=== PATIENT | male | born 1960 | race Caucasian/White ===

== ENCOUNTER 2016-07-05 01:43 | Inpatient (IN) | payer OTHER ==
[~2016-07-05] VITALS: Ht 180.3 cm; Wt 63.2 kg
[2016-07-05] VITALS (36 sets, daily range): BP systolic 91–144; BP diastolic 51–92; PULSE 57–88; RESP 16–22; TEMP 97.4–98.5; O2SAT 92–99
[~2016-07-05 01:43] MED LIST: Z.0.NO CURRENT MEDS
[2016-07-05] MEDS: NITROGLYCERIN 0.4 MG SL 25 TABS/BTL SL SCH ×3 (01:54→02:19)
[2016-07-05] MEDS ORDERED: ASPIRIN 81 MG CHEW TAB PO ONE (02:00)
[2016-07-05] MEDS ORDERED: SODIUM CHLORID 0.9% 500 ML INJ 500 ML IV ONE (02:00)
[2016-07-05] MEDS ORDERED: SODIUM CHLORIDE 0.9% FLUSH 10 ML FLUSH IVF PRN ×3 (02:00→05:45)
[2016-07-05] MEDS ORDERED: SODIUM CHLOR 0.9% 1000 ML INJ 1,000 ML IV SCH (02:00)
[2016-07-05] MEDS ORDERED: ALPR0.25 PO (02:07)
[2016-07-05] MEDS ORDERED: PANT20TA2 PO (02:07)
[2016-07-05] MEDS ORDERED: BUPR100CR PO (02:07)
[2016-07-05] MEDS ORDERED: ATOR20TA15 PO (02:07)
[2016-07-05 02:25] LABS: AUTOMATED NEUTROPHIL # 5.5 TH/MM3 (1.8-7.7); BASOPHIL # 0.2 TH/MM3 (0-0.2); BASOPHIL % 1.7 % (0.0-2.0); EOSINOPHIL # 0.5 TH/MM3 (0-0.4); LYMPH % 42.8 % (9.0-44.0); LYMPHOCYTE # 5.1 TH/MM3 (1.0-4.8); MEAN CELL VOLUME 91.7 FL (80.0-100.0); MEAN CORPUSCULAR HEMOGLOBIN 30.2 PG (27.0-34.0); NEUT % 45.5 % (16.0-70.0); PLATELET COUNT 331 TH/MM3 (150-450); RED BLOOD COUNT 4.91 MIL/MM3 (4.50-5.90); RED CELL DISTRIBUTION WIDTH 12.6 % (11.6-17.2)
[2016-07-05 02:26] LABS: HEMO FLAGS DIFF FINAL
[2016-07-05 02:33] LABS: CHLORIDE 105 MEQ/L (98-107); SODIUM (NA) 143 MEQ/L (136-145)
[2016-07-05 02:37] LABS: ANION GAP 9 MEQ/L (5-15); APTT (PATIENT) 22.9 SEC (24.3-30.1); BICARBONATE 29.5 MEQ/L (21.0-32.0); INTERNATIONAL NORMALIZED RATIO 0.9 RATIO; MAGNESIUM 2.2 MG/DL (1.5-2.5)
[2016-07-05 02:38] LABS: BLOOD UREA NITROGEN 20 MG/DL (7-18)
[2016-07-05 02:40] LABS: ALT (GPT) 60 U/L (12-78); AST (GOT) 39 U/L (15-37); GLOMERULAR FILTRATION RATE 101 ML/MIN (>89)
[2016-07-05 02:42] LABS: TOTAL BILIRUBIN ADULT 0.4 MG/DL (0.2-1.0)
[2016-07-05 02:43] LABS: ALKALINE PHOSPHATASE 90 U/L (45-117); CREATINE KINASE 145 U/L (39-308)
[2016-07-05] MEDS ORDERED: POTASSIUM CHLORIDE 20 MEQ CONTROLLED RELEASE TAB PO ONE (02:45)
[2016-07-05] MEDS ORDERED: NITROGLYCERIN-DEXTROSE INJ 250 ML IV ONE ×2 (02:45→06:15)
[2016-07-05] MEDS ORDERED: NITROGLYCERIN-DEXTROSE INJ 250 ML IV SCH (02:45)
[2016-07-05] MEDS ORDERED: ONDANSETRON HCL 4 MG/2 ML VIAL IV PUSH ONE ×2 (02:45→03:15)
[2016-07-05] MEDS ORDERED: MORPHINE SULFATE 4 MG/ML INJ IV PUSH ONE (02:45)
--- NOTE | 2016-07-05 02:47 | RADHPO ---
EXAM DATE/TIME: 07/05/2016 02:31 [facility] COMPARISON: No previous studies available for comparison. INDICATIONS : Chest pain. MEDICAL HISTORY : None. SURGICAL HISTORY : None. ENCOUNTER: Initial ACUITY: 1 day PAIN SCORE: 8/10 LOCATION: Bilateral chest FINDINGS: The heart size is normal. The lungs are free of focal consolidation. There are small calcified granul omas seen in the right lung. There is mild elevation of the left hemidiaphragm. No effusion is seen. CONCLUSION: No acute abnormality is seen. August Saravia MD on July 05, 2016 at 2:45 Board Certified Radiologist. This report was verified electronically.
[2016-07-05 02:55] LABS: CKMB 3.2 NG/ML (0.5-3.6)
[2016-07-05] MEDS ORDERED: SODIUM CHLOR 0.9% 1000 ML INJ 1,000 ML IV ONE (03:15)
[2016-07-05] MEDS ORDERED: HYDROmorphone HCL PF 1 MG/ML VIAL IV PUSH ONE ×2 (03:15→04:30)
--- NOTE | 2016-07-05 03:18 | PD ---
HPI Chief Complaint: Chest Pain Time Seen by Provider: 01:50 Travel History International Travel<30 days: No Contact w/Intl Traveler<30days: No Traveled to known affect area: No History of Present Illness HPI 56-year-old male presents to the emergency department by private transportation for 45 minutes of chest pain. Chest pain is nonradiating. Patient did note some mild sweats and nausea. Patient denies abdominal pain. No prior history of chest pain. Patient is treated for high cholesterol. Patient quit smoking 2 months ago after several years a heavy tobacco use. No prior history of cardiac disease. Patient denies any family history of cardiac disease. Patient denies referred neck jaw back shoulder arm or abdominal pain. Patient states symptoms began after eating rice and beans and eating ice cream. No prior history of gallbladder disease or pancreatitis also denies peptic ulcer disease. Patient has had no hematemesis no coffee-ground emesis. Patient states he has noted a lot of belching. Patient had similar symptoms after eating fatty foods several weeks ago. Patient rates pain 7/10 in intensity. Patient is unable to identify exacerbating or alleviating factors. Patient did take aspirin prior to arrival to the emergency room. PFSH Past Medical History Narrative Medical Anxiety depression dyslipidemia GERD alcohol use; nursing notes reviewed Anxiety: Yes Depression: Yes High Cholesterol: Yes GERD: Yes Tetanus Vaccination: > 5 Years Influenza Vaccination: No Social History Alcohol Use: Yes (occ) Tobacco Use: No (quit 2 mo ago) Allergies-Medications (Allergen,Severity, Reaction): Coded Allergies: No Known Allergies (Unverified , 07/05/16) Reported Meds & Prescriptions Reported Meds & Active Scripts Active Reported Atorvastatin (Atorvastatin Calcium) 20 Mg Tab 20 Mg PO HS Pantoprazole (Pantoprazole Sodium) 20 Mg Tab 20 Mg PO DAILY Wellbutrin SR 12 HR (Bupropion HCl) 100 Mg Tab 100 Mg PO Q12HR Alprazolam 0.25 Mg Tab 0.25 Mg PO BID PRN No Current Meds (Miscellaneous Medication) Misc Review of Systems Except as stated in HPI: all other systems reviewed are Neg General / Constitutional: No: Fever, Chills HENT: No: Congestion Cardiovascular: Positive: Chest Pain or Discomfort, Diaphoresis, No: Palpitations, Irregular Rhythm, Tachycardia Respiratory: No: Cough, Shortness of Breath, Wheezing, Sneezing Gastrointestinal: Positive: Nausea, No: Vomiting, Diarrhea, Abdominal Pain Genitourinary: No: Dysuria, Flank Pain Musculoskeletal: No: Myalgias, Arthralgias Skin: No Rash Neurologic: No: Weakness Psychiatric: No: Anxiety Endocrine: No: Heat Intolerance Hematologic/Lymphatic: No: Easy Bruising Physical Exam Narrative GENERAL: Well-developed well-nourished male appears in discomfort no respiratory distress SKIN: Warm and dry. HEAD: Normocephalic. EYES: No scleral icterus. No injection or drainage. NECK: Supple, trachea midline. No JVD or lymphadenopathy. CARDIOVASCULAR: Regular rate and rhythm without murmurs, gallops, or rubs. RESPIRATORY: Breath sounds equal bilaterally. No accessory muscle use. GASTROINTESTINAL: Abdomen soft, non-tender, nondistended. MUSCULOSKELETAL: No cyanosis, or edema. Radial and dorsalis pedis pulses 2+ to palpation bilateral BACK: Nontender without obvious deformity. No CVA tenderness. Data Data Last Documented VS Vital Signs Date Time Temp Pulse Resp B/P Pulse Ox O2 Delivery O2 Flow Rate FiO2 07/05/16 05:20 70 18 115/83 99 Room Air 07/05/16 04:52 2 07/05/16 02:14 97.6 Orders Electrocardiogram (07/05/16 01:50) Ckmb (Isoenzyme) Profile (07/05/16 01:50) Complete Blood Count With Diff (07/05/16 01:50) Comprehensive Metabolic Panel (07/05/16 01:50) Magnesium (Mg) (07/05/16 01:50) Prothrombin Time / Inr (Pt) (07/05/16 01:50) Act Partial Throm Time (Ptt) (07/05/16 01:50) Troponin I (07/05/16 01:50) Lipase (07/05/16 01:50) Chest, Single Ap (07/05/16 01:50) Ecg Monitoring (07/05/16 01:50) Bilateral Bp Monitoring (07/05/16 01:50) Iv Access Insert/Monitor (07/05/16 01:50) Oximetry (07/05/16 01:50) Oxygen Administration (07/05/16 01:50) Aspirin Chew (Aspirin Chew) (07/05/16 02:00) Sodium Chloride 0.9% Flush (Ns Flush) (07/05/16 02:00) Nitroglycerin Sl (Nitrostat Sl) (07/05/16 02:00) Sodium Chlorid 0.9% 500 Ml Inj (Ns 500 M (07/05/16 02:00) Sodium Chlor 0.9% 1000 Ml Inj (Ns 1000 M (07/05/16 02:00) Ondansetron Inj (Zofran Inj) (07/05/16 02:45) Morphine Inj (Morphine Inj) (07/05/16 02:45) Nitroglycerin-Dextrose Inj (Nitroglyceri (07/05/16 02:45) Electrocardiogram (07/05/16 ) Potassium Chloride (Kcl) (07/05/16 02:45) CKMB (07/05/16 02:10) CKMB% (07/05/16 02:10) Sodium Chlor 0.9% 1000 Ml Inj (Ns 1000 M (07/05/16 03:15) Ondansetron Inj (Zofran Inj) (07/05/16 03:15) Hydromorphone Pf Inj (Dilaudid Pf Inj) (07/05/16 03:15) Sodium Chloride 0.9% Flush (Ns Flush) (07/05/16 03:15) Cta Thor Abd Aorta W Iv C W3d (07/05/16 03:08) Pantoprazole Inj (Protonix Inj) (07/05/16 03:45) Metoclopramide Inj (Reglan Inj) (07/05/16 04:30) Potassium Chlor 10 Meq Premix (Kcl 10 Me (07/05/16 04:30) Hydromorphone Pf Inj (Dilaudid Pf Inj) (07/05/16 04:30) Iohexol 350 Inj (Omnipaque 350 Inj) (07/05/16 04:30) Troponin I (07/05/16 05:09) Ckmb (Isoenzyme) Profile (07/05/16 05:09) Electrocardiogram (07/05/16 ) Heparin Infusion IWONA.Q1H (07/05/16 05:26) Heparin Inj (Heparin Inj) (07/05/16 05:30) Heparin Inj (Heparin Inj) (07/05/16 11:30) Heparin Inj (Heparin Inj) (07/05/16 11:30) Heparin-D5w Inj (Heparin-D5w Inj) (07/05/16 05:30) Act Partial Throm Time (Ptt) (07/05/16 05:26) Prothrombin Time / Inr (Pt) (07/05/16 05:26) Cbc No Diff, Includes Plts (07/05/16 05:26) Cbc No Diff, Includes Plts (07/08/16 06:00) Act Partial Throm Time (Ptt) (07/05/16 12:26) Occult Blood (Hemoccult) Stool (07/05/16 05:26) Admit Order (Ed Use Only) (07/05/16 ) ^ Saline Lock (07/05/16 05:40) Resp Oxygen Clayton C Titrat 1-4 L (07/05/16 ) Notify Dr: Other (07/05/16 05:40) Sodium Chloride 0.9% Flush (Ns Flush) (07/05/16 09:00) Sodium Chloride 0.9% Flush (Ns Flush) (07/05/16 05:45) CKMB (07/05/16 05:15) CKMB% (07/05/16 05:15) Labs Laboratory Tests Test 07/05/16 07/05/16 07/05/16 02:10 05:15 05:35 White Blood Count 12.0 TH/MM3 18.3 TH/MM3 Red Blood Count 4.91 MIL/MM3 4.12 MIL/MM3 Hemoglobin 14.8 GM/DL 13.3 GM/DL Hematocrit 45.0 % 38.0 % Mean Corpuscular Volume 91.7 FL 92.4 FL Mean Corpuscular Hemoglobin 30.2 PG 32.3 PG Mean Corpuscular Hemoglobin 33.0 % 35.0 % Concent Red Cell Distribution Width 12.6 % 12.3 % Platelet Count 331 TH/MM3 258 TH/MM3 Mean Platelet Volume 7.8 FL 7.3 FL Neutrophils (%) (Auto) 45.5 % Lymphocytes (%) (Auto) 42.8 % Monocytes (%) (Auto) 6.0 % Eosinophils (%) (Auto) 4.0 % Basophils (%) (Auto) 1.7 % Neutrophils # (Auto) 5.5 TH/MM3 Lymphocytes # (Auto) 5.1 TH/MM3 Monocytes # (Auto) 0.7 TH/MM3 Eosinophils # (Auto) 0.5 TH/MM3 Basophils # (Auto) 0.2 TH/MM3 CBC Comment DIFF FINAL Differential Comment Prothrombin Time 10.0 SEC 10.4 SEC Prothromb Time International 0.9 RATIO 0.9 RATIO Ratio Activated Partial 22.9 SEC 24.3 SEC Thromboplast Time Sodium Level 143 MEQ/L Potassium Level 3.0 MEQ/L Chloride Level 105 MEQ/L Carbon Dioxide Level 29.5 MEQ/L Anion Gap 9 MEQ/L Blood Urea Nitrogen 20 MG/DL Creatinine 0.79 MG/DL Estimat Glomerular Filtration 101 ML/MIN Rate Random Glucose 118 MG/DL Calcium Level 8.8 MG/DL Magnesium Level 2.2 MG/DL Total Bilirubin 0.4 MG/DL Aspartate Amino Transf 39 U/L (AST/SGOT) Alanine Aminotransferase 60 U/L (ALT/SGPT) Alkaline Phosphatase 90 U/L Total Creatine Kinase 145 U/L 124 U/L Creatine Kinase MB 3.2 NG/ML 5.0 NG/ML Troponin I 0.02 NG/ML 0.22 NG/ML Total Protein 7.6 GM/DL Albumin 3.8 GM/DL Lipase 132 U/L MDM Medical Decision Making Medical Screen Exam Complete: Yes Emergency Medical Condition: Yes Medical Record Reviewed: Yes Interpretation(s) EKG: normal sinus rhythm rate [address] elevation or ischemic changes inferiorly QS septally in V1 V2 age-indeterminate repeat EKG: Normal sinus rhythm rate [address] elevation or injury pattern persistent QS in V1 V2 decreased ischemic changes inferiorly CBC & BMP Diagram 07/05/16 02:10 Last Impressions Chest X-Ray 07/05/16 0150 Signed Impressions: Service Date/Time: Tuesday, July 05, 2016 02:31 - CONCLUSION: No acute abnormality is seen. August Saravia MD EKG #3 normal sinus rhythm rate 63 with ischemic changes noted inferiorly QS noted in septally in V1 V2 Differential Diagnosis Chest pain, ACS, myocardial infarction, pancreatitis, cholecystitis, aortic dissection, esophageal spasm Narrative Course Patient placed on cardiac nurse specialist IV access obtained EKG performed. No acute ST elevation in the: Patient administered aspirin 162 mg by mouth along with sublingual nitroglycerin normal saline bolus 500 cc and maintenance fluid at 100 cc per hour normal saline Patient notes after one sublingual nitroglycerin pain has decreased from 7/10-5/ 10 intensity but noted recurrence of pain to 7/10 in intensity additional intervention was administered and repeat EKG performed which reveals no acute changes compared to previous EKG Patient reports increased pain was identified to have low potassium administered Zofran 4 mg morphine sulfate 4 mg IV 40 mEq of potassium by mouth and nitroglycerin infusion and ordered cardiac enzymes pending Cardiac enzymes resulted CK total 30, elevated troponin I 0.02 not elevated Patient complains of increased pain administered Dilaudid 0.5 mg and CTA chest and abdomen ordered At 4:20 AM patient has returned from CT noted increased vomiting after IV contrast actively vomiting at this time Reglan 10 mg IV ordered patient also complains of recurrent chest pain stating that morphine provided no relief rates pain again 7/10 in intensity no associated sweats shortness of breath or referred neck jaw back shoulder arm pain; Dilaudid 0.5 mg repeated patient is receiving infusion of nitroglycerin at 10 mics per minute. CTa results pendnig trop #2 elevated 0.22. CK mb 4% elevated Critical Care Narrative Aggregate critical care time was 40 minutes. Time to perform other separately billable procedures was not included in the critical care time. My time did not include minutes spent treating any other patients simultaneously or on activities that did not directly contribute to the patient's treatment. The services I provided to this patient were to treat and/or prevent clinically significant deterioration that could result in: Cardiogenic shock, arrhythmia, I provided critical care services requiring my management, as noted below: Chart data review, documentation time, medication orders and management, vital sign assessments/reviewing monitor data, ordering and reviewing lab tests, ordering and interpreting/reviewing x-rays and diagnostic studies, care of the patient and discussion of the patient with the admitting physicians. 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
[2016-07-05] MEDS ORDERED: PANTOPRAZOLE SODIUM 40 MG VIAL IV PUSH ONE (03:45)
[2016-07-05] MEDS ORDERED: METOCLOPRAMIDE HCL 10 MG/2 ML VIAL IV PUSH ONE (04:30)
[2016-07-05] MEDS ORDERED: IOHEXOL 350 MG/ML 10 ML VIAL (for RAD DIAG) IV ONE (04:30)
[2016-07-05] MEDS: POTASSIUM CHLOR 10 MEQ PREMIX 100 ML IV SCH ×3 (04:45→06:48)
--- NOTE | 2016-07-05 04:59 | RADHPO ---
EXAM DATE/TIME: 07/05/2016 04:02 [facility] COMPARISON: No previous studies available for comparison. INDICATIONS : Chest pain. IV CONTRAST: 100 cc Omnipaque 350 (iohexol) IV RADIATION DOSE: 22.51 CTDIvol (mGy) MEDICAL HISTORY : Gastroesophageal reflux disease. SURGICAL HISTORY : None. ENCOUNTER: Initial ACUITY: 1 day PAIN SCALE: 7/10 LOCATION: chest TECHNIQUE: Volumetric scanning was performed using a multi-row detector CT scanner. The data was post processed with a variety of visualization algorithms including full volume maximum intensity projection, multi -planar sliding thin slab reformation, curved planar reformation, and surface rendering techniques. Using automated exposure control and adjustment of the mA and/or kV according to patient size, radiat ion dose was kept as low as reasonably achievable to obtain optimal diagnostic quality images. FINDINGS: LUNGS: There is no consolidation or pneumothorax. No concerning pulmonary nodule is visualized. There is m ild dependent atelectasis seen at the posterior lung bases. No pleural fluid is present. MEDIASTINUM: No abnormally enlarged lymph nodes by CT criteria. No axillary or hilar abnormalities are identified. Coronary artery calcifications are present. ABDOMEN: There are several peripherally enhancing mass is seen in the liver the largest mass measuring 1.7 cm. The spleen is free of focal defects. The gallbladder and pancreas demonstrate no abnormality. The ad renal glands are normal. The kidneys demonstrate no evidence of solid renal mass or hydronephrosis. T here is a 1.8 cm left renal cyst seen. No free fluid or abdominal masses are identified. No para-aort ic adenopathy is seen. PELVIS: No evidence of free fluid or pelvic mass. No abnormally enlarged inguinal or retroperitoneal lymph no angel are present. The bladder is unremarkable. THORACIC AORTA: The thoracic aortic root is normal with normal branching of the great vessels. There is no evidence of aneurysm or dissection. There is scattered atherosclerotic plaque seen. ABDOMINAL AORTA: The aorta is normal in caliber without aneurysm or dissection. The renal arteries are patent bilater ally. The proximal celiac and superior mesenteric arteries are patent and normal in diameter. PELVIC VESSELS: The internal iliac and external iliac vessels are patent without aneurysm or stenosis. CONCLUSION: 1. Minimal scattered atherosclerotic plaque is seen throughout the arterial system. 2. Multiple peripherally enhancing masses in the liver likely representing hemangiomas. August Saravia MD on July 05, 2016 at 4:52 Board Certified Radiologist. This report was verified electronically.
[2016-07-05] MEDS ORDERED: HEPARIN-D5W INJ 250 ML IV SCH (05:30)
[2016-07-05] MEDS ORDERED: HEPARIN SODIUM - IV 10,000 UNITS/10 ML VIAL IV ONE (05:30)
[2016-07-05 05:58] LABS: CREATINE KINASE 124 U/L (39-308)
[2016-07-05] MEDS ORDERED: METOPROLOL TARTRATE 5 MG/5 ML VIAL IV PUSH ONE (06:00)
[2016-07-05 06:02] LABS: MEAN CELL VOLUME 92.4 FL (80.0-100.0); MEAN CORPUSCULAR HEMOGLOBIN 32.3 PG (27.0-34.0); PLATELET COUNT 258 TH/MM3 (150-450); RED BLOOD COUNT 4.12 MIL/MM3 (4.50-5.90); RED CELL DISTRIBUTION WIDTH 12.3 % (11.6-17.2); REVIEW FLAG FINAL; WHITE BLOOD COUNT 18.3 TH/MM3 (4.0-11.0)
[2016-07-05 06:05] LABS: APTT (PATIENT) 24.3 SEC (24.3-30.1); INTERNATIONAL NORMALIZED RATIO 0.9 RATIO; PROTHROMBIN TIME - PATIENT 10.4 SEC (9.8-11.6)
[2016-07-05] MEDS ORDERED: ALPRAZolam 0.25 MG TAB PO PRN (06:30)
--- NOTE | 2016-07-05 08:19 | MH ---
cc: CARMELLA SCOTT M.D. DATE OF ADMISSION: 07/05/2016 ADMITTING DIAGNOSIS: Acute non-ST elevation myocardial infarction Hyperlipidemia. Gastroesophageal reflux disease Anxiety. Depression. PERTINENT HISTORY This is a 56-year-old white male who presented to [facility] in [place]. In the nail sticker hours he presented to [facility] in [place]. In the nail sticker hours he started having some substernal lower chest pain around 10:45, 11:00 p.m. according to him he had some slight nausea and sweats. The chest pain did not radiate to his neck or jaw. He had some chronic left shoulder pain but he states the pain, he had no pain was similar to that from his chest pain. When he came to the emergency department he was still in pain and he did have some vomiting, has been given some medication for his pain. He has been given some mediations for his pain. He has been put on a heparin drip, he was given some metoprolol IV push. He was given some pantoprazole IV. His initial EKG showed some slight ST depression in the inferiorly leads. He has been put on IV nitroglycerin. His troponin that was done initially was 0.02. The subsequent one has come back is 0.2. That was just done at 5 and a CK-MB percent was noted to be at 4%. With a total CK of 124. He has had no prior history of heart disease. He is under treatment for hyperlipidemia and he takes pantoprazole for occasional heartburn. The ER physician talked with the mud boss supply and distribution manager who recommended he be transferred up to [place]. I was subsequently called the cons covering the hospitalist up at [place] until 7:00 this morning I came over to the emergency room within 30 minutes after being called and saw him in the [place] ER and that the patient is in the process of being transferred to Dr. Jeffery Cifuentes the ER physician and subsequently talked again with the mud boss who has recommended he is transferred up there urgently and go to the catheterization lab with arrangements being made for that. The ambulance is in route now as I am dictating this in the emergency department. PAST MEDICAL HISTORY He takes medicine for hyperlipidemia occasionally uses pantoprazole for gastroesophageal reflux disease. He has history of anxiety and depression. He takes bupropion for depression. He only takes Alprazolam maybe three days per week. He denies any hypertension, diabetes, no history of heart disease. No stroke or seizure no lung disease, liver or kidney disease. PAST SURGICAL HISTORY Has had a right inguinal hernia repair, tonsillectomy had a cervical fusion in the past. Surgery for fracture of his distal right radius with a plate put in. ALLERGIES None. MEDICATIONS 1. He is on atorvastatin 20 mg a day. 2. Pantoprazole 20 mg he does not take it daily just as needed for heartburn. 3. Bupropion sustained release 100 mg one twice a day. Admits that lots of times he just takes it once per day. 4. Alprazolam 0.25 mg only uses it maybe 3 days a week. FAMILY HISTORY: Family history is mother 96 of old age. Father at 86. He does not know the cause. He did have history of coronary bypass grafting. SOCIAL HISTORY He quit smoking two months ago. He has smoked 3/4 pack to one pack per day it started at age 19. He has occasional glass of wine or beer not daily. 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 He is single but has been with the same female partner for several years. He has never . REVIEW OF SYSTEMS GENERAL: No fever, chills and he did have some mild sweats when he was nausea and earlier. HEAD, EYES, EARS, NOSE, AND THROAT: Without complaints. CARDIOVASCULAR SYSTEM: As noted. He States his pain is still slightly present but not as intense as an was when he first came into the emergency department. PULMONARY: No cough, hemoptysis, wheezing. GASTROINTESTINAL: No diarrhea, constipation, melena, rectal bleeding. No abdominal pain. He did vomit in the ED but does not complain of any nausea now. GENITOURINARY: Without complaints. EXTREMITIES: With no swelling or pain. SKIN: The skin without rash. NEUROLOGIC: No focal signs. PHYSICAL EXAMINATION: IN GENERAL: He is on her pleasant white male who is not any distress. VITAL SIGNS: His current Vital signs: BP is 119/91, pulse 85, respirations 18, O2 sat 98% on room air. HEAD, EYES, EARS, NOSE, AND THROAT: TMs clear. Pupils nose. Pupils equal. No scleral icterus. Nose negative. Mouth without inflammation or lesion. NECK: Without bruit. No JVD. HEART: Regular rate and rhythm. No murmur. LUNGS: The lungs appear clear. ABDOMEN: The abdomen is soft, nontender and no masses. No chest wall tenderness. EXTREMITIES: No edema. Pulses are palpated in the feet. SKIN: Negative. LYMPHATICS: Negative. NEUOROLOGIC: Oriented x3. Cranial nerves, motor sensory intact. LABORATORY His potassium was 3.0. Sodium 143, chloride 1-0 CO2 29.5, BUN 20, creatinine 0.79. His glucose was 118, AST was 39, ALT 60, alkaline phosphatase normal. His initial CK was 145 repeat 124 but the MB percent went up from 3.2 to 4%. Troponin was 0.02 and then increased to 0.22 total protein 7.6. Albumin 3.8, lipase 132. White count initially was 12.0. Hemoglobin 14.8 A CTA of the chest showed some minimal scattered atherosclerotic plaque seen throughout the arterial system. There were multiple peripheral enhancing masses in the liver likely representing and Angiomas. A Chest x-ray Showed no acute process. EKG as mentioned. ASSESSMENT As noted. PLAN Arrangements being made currently for the patient be transferred directly to [facility] with preparations being made by the mud boss for him to go to the dental laboratory technology teacher as mentioned. He is on IV nitroglycerin and he has been on heparin. He has received metoprolol, he has already had aspirin. He has received pantoprazole. He is on the narcotics IV for pain. He will be managed by one of the hospitalist in [facility] later today. MD MARLEY Montilla/sophia /6:34 AM /8:05 AM
[2016-07-05] MEDS: SODIUM CHLORIDE 0.9% FLUSH 10 ML FLUSH IV FLUSH SCH ×2 (08:22→21:00)
[2016-07-05] MEDS: PANTOPRAZOLE SOD 20 MG DELAYED RELEASE TAB PO SCH (08:28)
[2016-07-05] MEDS: buPROPion HCL 100 MG SUSTAINED RELEASE TAB PO SCH ×2 (08:28→21:00)
--- NOTE | 2016-07-05 09:54 | HHI.PR ---
Subjective Remarks resting comfortably no cp or sob Objective Vitals heart reg lung cta abd s/nt ext no edema Vital Signs Date Time Temp Pulse Resp B/P Pulse Ox O2 Delivery O2 Flow Rate FiO2 07/05/16 09:23 71 07/05/16 08:45 58 07/05/16 08:45 97.4 57 18 106/76 97 07/05/16 06:30 78 18 112/85 97 Nasal Cannula 07/05/16 06:20 65 18 117/83 97 Nasal Cannula 07/05/16 06:09 98 Nasal Cannula 2.00 07/05/16 06:00 85 18 119/91 98 Nasal Cannula 2 07/05/16 05:20 70 18 115/83 99 Room Air 07/05/16 05:00 19 07/05/16 04:52 70 20 129/87 99 Nasal Cannula 2 07/05/16 04:28 72 20 118/83 97 Nasal Cannula 2 07/05/16 04:20 69 19 100/74 07/05/16 03:54 72 22 91/54 Nasal Cannula 07/05/16 03:51 18 07/05/16 03:39 Nasal Cannula 2 07/05/16 03:31 70 22 107/66 99 Nasal Cannula 07/05/16 03:26 67 22 108/78 99 Nasal Cannula 2 07/05/16 03:16 62 22 107/78 99 Nasal Cannula 2 07/05/16 02:51 20 07/05/16 02:48 71 20 101/73 98 Nasal Cannula 07/05/16 02:36 69 18 113/76 98 Nasal Cannula 2 07/05/16 02:21 Nasal Cannula 2 07/05/16 02:20 68 18 107/72 98 Nasal Cannula 2 07/05/16 02:14 97.6 64 19 105/71 94 Nasal Cannula 07/05/16 02:10 95 Nasal Cannula 2 07/05/16 02:10 94 Nasal Cannula 2 07/05/16 02:08 75 18 96/61 92 Room Air 94/51 07/05/16 01:59 19 07/05/16 01:54 144/92 07/04/16 07/04/16 07/05/16 15:00 23:00 07:00 Intake Total 1500 ml Output Total 900 ml Balance 600 ml Intake IV Total 1500 ml Output Urine Total 700 ml Emesis 200 ml Result Diagram: 07/05/16 0535 07/05/16 0210 A/P Problem List: (1) NSTEMI (non-ST elevated myocardial infarction) Status: Acute Plan: Pt presented with cp and elevated troponin concerning for nstemi on heparin ntg statin asa further meds to be determined. ivf seen by cardiology and [facility] planned soon. (2) Hypokalemia Status: Acute Plan: Moises Quiroz MD Jul 05, 2016 09:54
[2016-07-05] MEDS: NS + KCL 20 MEQ INJ 1,000 ML IV SCH ×2 (10:00→21:29)
[2016-07-05] MEDS ORDERED: HEPARIN SODIUM - IV 10,000 UNITS/10 ML VIAL IV PRN ×2 (11:30)
[2016-07-05] MEDS ORDERED: HEPARIN-NS/PF INJ 500 ML ONE (11:58)
[2016-07-05] MEDS ORDERED: IOHEXOL 350 MG/ML 100 ML BTL (for Cath Lab) OTHER ONE (12:23)
[2016-07-05] MEDS ORDERED: MIDAZOLAM HCL 2 MG/2 ML VIAL ONE (12:27)
[2016-07-05] MEDS ORDERED: HEPARIN SODIUM - IV 10,000 UNITS/10 ML VIAL ONE (13:21)
[2016-07-05] MEDS ORDERED: CLOPIDOGREL 300 MG TAB ONE (13:45)
[2016-07-05] MEDS ORDERED: ONDANSETRON HCL 4 MG/2 ML VIAL IV PRN (14:00)
[2016-07-05] MEDS ORDERED: ATROPINE SULFATE 1 MG/ML VIAL IV PRN (14:00)
[2016-07-05] MEDS ORDERED: MISC INFORMATION XX ONE (14:00)
[2016-07-05] MEDS ORDERED: CLOPIDOGREL 300 MG TAB PO ONE (14:30)
[2016-07-05] MEDS: ASPIRIN 81 MG CHEW TAB PO SCH (14:30)
[2016-07-05] MEDS ORDERED: POTASSIUM CHLORIDE 10 MEQ CONTROLLED RELEASE TAB PO ONE (14:30)
--- NOTE | 2016-07-05 14:30 | EKG ---
Date Performed: 07/05/2016 Time Performed: 01:44:26 PTAGE: 56 years EKG: Sinus rhythm . rSr'(V1) - probable normal variant Inferior/lateral ST-T changes are nonspecific Compared to prior tracing no significant change Borderline ECG NO PREVIOUS TRACING DOCTOR: Jose Monae Interpretating Date/Time 07/05/2016 14:30:07
--- NOTE | 2016-07-05 14:30 | EKG ---
Date Performed: 07/05/2016 Time Performed: 02:35:02 PTAGE: 56 years EKG: Sinus rhythm . rSr'(V1) - probable normal variant Inferior ST-T changes are nonspecific Compared to prior tracing no significant change Borderline ECG PREVIOUS TRACING : 07/05/2016 01.44 DOCTOR: Jose Monae Interpretating Date/Time 07/05/2016 14:30:16
--- NOTE | 2016-07-05 14:31 | EKG ---
Date Performed: 07/05/2016 Time Performed: 05:15:02 PTAGE: 56 years EKG: Sinus arrhythmia. rSr'(V1) - probable normal variant Extensive ST-T changes are nonspecific Compared to prior tracing no significant change Borderline ECG NO PREVIOUS TRACING DOCTOR: Jose Monae Interpretating Date/Time 07/05/2016 14:30:29
[2016-07-05 16:39] LABS: APTT (PATIENT) 44.1 SEC (24.3-30.1)
--- NOTE | 2016-07-05 18:21 | MB ---
cc: JERSON OAKLEY DATE OF CONSULTATION 07/05/16 1960 REASON FOR CONSULTATION Chest pain. HISTORY OF PRESENT ILLNESS 56-year-old male with past medical history of hyperlipidemia and gastroesophageal reflux disease that presented to the [facility] emergency department with complaint of chest discomfort associated with diaphoresis and nausea. He reports that the chest pain radiated to his neck and jaw. In the emergency department, EKG revealed sinus rhythm with nonspecific ST changes. The first set of cardiac markers was unremarkable. However, he continued with the pain despite starting him on nitro and heparin drip. CTA of the chest was negative for pulmonary emboli or dissection. Cardiology has been consulted for further management and evaluation. REVIEW OF SYSTEMS Negative except for what is mentioned in HPI. PAST MEDICAL HISTORY 1. Hyperlipidemia, 2. Gastroesophageal reflux disease, 3. Depression, anxiety 4. Previous smoker. PAST SURGICAL HISTORY 1. Writing inguinal hernia repairs 2. Tonsillectomy 3. Cervical fusion. ALLERGIES NO KNOWN DRUG ALLERGIES MEDICATIONS Home, 1. Lipitor 20 mg p.o. daily. 2. Protonix 20 mg p.o. daily 3. Bupropion 100 mg by mouth twice a day 4. Alprazolam 0.25 p.r.n. for anxiety. FAMILY HISTORY Unremarkable. SOCIAL HISTORY He quit smoking two months ago. He drinks alcohol socially. He denies any illicit drug use. PHYSICAL EXAMINATION VITAL SIGNS: Temperature 97.6, respiratory rate 18, pulse 63, blood pressure 100/69, O2 sat 94% in room air. GENERAL: Awake, alert, oriented x3 in no acute distress. NECK: No JVP, no carotid bruits. HEART: Regular rate and rhythm. No murmurs, rubs or gallops. LUNGS: Clear to auscultation bilaterally. No wheezes or rhonchi or rales. ABDOMEN: Soft, nontender, nondistended with positive bowel sounds. EXTREMITIES: No cyanosis or edema. Pulses throughout. LAB DATA CBC - Hemoglobin 13, hematocrit 38, white blood cell count trending up to 18, platelet count 258, INR 0.9. Sodium 143, potassium 3.0, BUN 20, creatinine 0.79, troponin 0.02 and 0.22. LABORATORY DATA CTA unremarkable for dissection. Chest x-ray - No acute cardiopulmonary process. CARDIOLOGY STUDIES EKG - sinus rhythm with nonspecific ST changes. ASSESSMENT/PLAN 56-year-old male with past medical history of hyperlipidemia, former smoker that presents with chest pain that is not relieved by nitroglycerin, suggestive of ACS. The second set of troponin elevated at 0.22. Given the patient's cardiac risk factors, age, hyperlipidemia and smoking, I think it would reasonable to take him to the cardiac organic lab worker for early PCI given continued chest pain. Risks, benefits of left heart cath/intervention included but not limited to bleeding, acute kidney injury, neurovascular trauma, emergent bypass surgery, stroke and have been explained to the patient. The patient understands risks and he is willing to proceed. RECOMMENDATIONS 1. Keep n.p.o. 2. Left heart cath/PCI today 3. Continue heparin drip, nitro drip, aspirin 4. Given bradycardia, hold beta blockers at this time. 5. Continue statins. Thank you for the opportunity to take part in the care of this patient. Further therapy to be determined. Jerson Oakley MD [facility] AIR CONDITIONING TECHNICIAN/SA /1:56 PM /6:00 PM [facility] CENTERRadha
--- NOTE | 2016-07-05 18:57 | MA ---
cc: JERSON OAKLEY MD DATE 07/05/16 1958 PROCEDURE PERFORMED 1. Right heart catheterization 2. Selective right and left coronary angiography. 3. Left ventriculogram 4. Right common femoral artery angiography. INDICATION [id number] MT. DESCRIPTION OF PROCEDURE Consent signed. The patient was brought into the cardiac clay processing labourer in a fasting state. The right groin was prepped and draped in sterile fashion. Using 1% lidocaine for local anesthesia and a micropuncture kit, a 6-Japanese sheath was inserted into the right common femoral artery. A right common femoral artery angiography was performed to confirm position of the sheath. Then selective right and left coronary angiography was performed with a JR-4 and a JL-4 respectively. Angiography was taken in multiple views. The JR-4 over a wire was used to cross through the left ventricle followed by pressure recordings, left ventriculogram and pullback. We identified an acute occlusion of the proximal LAD amenable to PCI. For this, IV heparin was given for anticoagulation. The left main was engaged with an EBU 3.5 guide. The LAD vessel was wired with a run-through wire which was anchored distally. The lesion was predilated with a 2.5 x 12 balloon followed by insertion and deployment of a drug-eluting stent 2.75 x 14. The stent was postdilated with a noncompliant 3.0 x 12 balloon to high atmospheres. Final angiographic views revealed good stent expansion and apposition with EFE III flow. The right groin access site was closed with a Perclose device. The patient was given Plavix loading after the procedure. RESULTS LEFT VENTRICLE The left ventricular pressure was 115/40 with an LVEDP of 20, aortic pressure was 115/77 with a mean of 95. Left ventriculogram revealed hypokineses of the anterior wall with an estimated ejection fraction of 40%. ANGIOGRAPHY 1. Right coronary artery is a CT O 100% occluded on its mid segment and is filled in by collaterals that come from the left. The right coronary artery is a dominant vessel. 2. Left main patent with EFE III flow and nonobstructive coronary artery disease, 3. LAD 100% occluded on its proximal segment with EFE zero flow. 4. Left circumflex is patent with EFE III flow given collaterals to the right coronary artery as well as to the LAD distally. CONCLUSION 1. Successful PCI/ADARSH to LAD in the setting of a [id number] MT. 2. BAND INSTRUMENT REPAIRER of the right coronary artery. 3. LV systolic dysfunction with an estimated ejection fraction of 40%. 4. Elevated LVEDP. RECOMMENDATIONS Continue on aggressive medical management for coronary artery disease. The patient should be on dual antiplatelet agent aspirin and Plavix per ACC/AHA guidelines for at least a year as well as aggressive medical management with beta-blockers, statins, CLAUDE inhibitors and long-acting nitrates. The patient should follow up with cardiology on an outpatient basis. If he continues having discomfort, he can be evaluated for PCI to the right coronary artery BAND INSTRUMENT REPAIRER. In terms of the post cath care, he should be at bedrest for at least four hours, encourage incentive spirometer and early ambulation and gentle IV hydration. MD LARISSA Knott/ /2:15 PM /6:38 PM MARLON
[2016-07-05] MEDS: METOPROLOL TARTRATE 25 MG TAB PO SCH (21:00)
[2016-07-05] MEDS ORDERED: ATORVASTATIN 20 MG TAB PO SCH (21:00)
[2016-07-05] MEDS ORDERED: ATORVASTATIN 10 MG TAB PO SCH (21:00)
[2016-07-06] VITALS (10 sets, daily range): BP systolic 113–115; BP diastolic 81–82; PULSE 69–87; RESP 18; TEMP 98–98.2; O2SAT 96–98
[2016-07-06] MEDS: NS + KCL 20 MEQ INJ 1,000 ML IV SCH (04:51)
[2016-07-06 05:23] LABS: AUTOMATED NEUTROPHIL # 8.4 TH/MM3 (1.8-7.7); BASOPHIL % 0.1 % (0.0-2.0); EOSINOPHIL # 0.1 TH/MM3 (0-0.4); EOSINOPHIL % 0.7 % (0.0-4.0); HEMATOCRIT 38.4 % (39.0-51.0); HEMO FLAGS DIFF FINAL; LYMPH % 20.2 % (9.0-44.0); LYMPHOCYTE # 2.4 TH/MM3 (1.0-4.8); MEAN CELL VOLUME 93.2 FL (80.0-100.0); MEAN CORPUSCULAR HEMOGLOBIN 30.9 PG (27.0-34.0); MEAN CORPUSCULAR HGB CONC 33.1 % (32.0-36.0); MONO % 7.6 % (0.0-8.0); NEUT % 71.4 % (16.0-70.0); PLATELET COUNT 216 TH/MM3 (150-450); RED BLOOD COUNT 4.12 MIL/MM3 (4.50-5.90); RED CELL DISTRIBUTION WIDTH 13.2 % (11.6-17.2); WHITE BLOOD COUNT 11.8 TH/MM3 (4.0-11.0)
[2016-07-06 05:42] LABS: BICARBONATE 24.7 MEQ/L (21.0-32.0); HDL CHOLESTEROL 51.3 MG/DL (40.0-60.0); MAGNESIUM 1.8 MG/DL (1.5-2.5); POTASSIUM 3.9 MEQ/L (3.5-5.1)
--- NOTE | 2016-07-06 07:28 | PD.CARD.PN ---
Subjective Subjective Remarks no complaints no overnight events chest pain free ambulating without difficulty Objective Medications Current Medications Medications (Trade) Dose Ordered Sig/Hood Route Start Time Stop Time Status Last Admin (NS Flush) 2 ml BID IV FLUSH 07/05/16 09:00 07/05/16 21:00 Sodium Chloride 2 ml 2 ml UNSCH PRN IVF 07/05/16 05:45 (Nitroglycerin-Dextrose Inj) 250 ml @ 0 mls/hr TITRATE IV 07/05/16 02:45 (Xanax) 0.25 mg BID PRN PO 07/05/16 06:30 (Wellbutrin Sr 12 Hr) 100 mg Q12HR PO 07/05/16 09:00 07/05/16 21:00 Pantoprazole Sodium 20 mg 20 mg DAILY PO 07/05/16 09:00 07/05/16 08:28 (NS + KCl 20 Meq Inj) 1,000 ml @ 100 mls/hr Q10H IV 07/05/16 10:00 07/05/16 21:29 (Aspirin Chew) 81 mg DAILY PO 07/05/16 14:30 07/05/16 14:30 (Plavix) 75 mg DAILY PO 07/06/16 09:00 (Atropine Inj) 0.5 mg UNSCH PRN IV 07/05/16 14:00 (Zofran Inj) 4 mg Q4H PRN IV 07/05/16 14:00 (Lopressor) 12.5 mg BID PO 07/05/16 21:00 07/05/16 21:00 (Altace) 2.5 mg DAILY PO 07/06/16 09:00 (Lipitor) 10 mg HS PO 07/05/16 21:00 07/05/16 21:00 Vital Signs / I&O Vital Signs Date Time Temp Pulse Resp B/P Pulse Ox O2 Delivery O2 Flow Rate FiO2 07/06/16 06:04 80 07/06/16 05:00 76 07/06/16 04:08 75 07/06/16 03:00 86 07/06/16 03:00 98.2 82 18 115/81 96 07/06/16 02:50 87 07/06/16 01:00 80 07/06/16 00:00 69 07/05/16 23:43 78 07/05/16 23:25 98.5 77 16 120/78 96 07/05/16 22:43 76 07/05/16 21:00 75 07/05/16 20:00 71 07/05/16 19:56 99 21 07/05/16 19:00 77 07/05/16 19:00 98.4 79 18 131/89 98 07/05/16 18:18 69 07/05/16 17:34 74 07/05/16 16:12 88 07/05/16 15:46 97.7 59 16 114/86 98 07/05/16 15:46 60 07/05/16 14:11 80 07/05/16 12:00 63 07/05/16 11:29 97.6 62 18 100/69 94 07/05/16 11:29 58 07/05/16 10:01 67 07/05/16 09:23 71 07/05/16 08:45 58 07/05/16 08:45 97.4 57 18 106/76 97 I/O 07/05/16 07/05/16 07/05/16 07/06/16 07/06/16 07/06/16 07:00 15:00 23:00 07:00 15:00 23:00 Intake Total 1500 ml 1790 ml 2050 ml Output Total 900 ml 1150 ml 1150 ml Balance 600 ml 640 ml 900 ml Intake Oral 600 ml 800 ml IV Total 1500 ml 1190 ml 1250 ml Output Urine Total 700 ml 1150 ml 1150 ml Emesis 200 ml # Bowel Movements 0 Physical Exam GENERAL: Well-nourished, well-developed patient. SKIN: Warm and dry. HEAD: Normocephalic. EYES: No scleral icterus. No injection or drainage. NECK: Supple, trachea midline. No JVD or lymphadenopathy. CARDIOVASCULAR: Regular rate and rhythm without murmurs, gallops, or rubs. RESPIRATORY: Breath sounds equal bilaterally. No accessory muscle use. GASTROINTESTINAL: Abdomen soft, non-tender, nondistended. EXTREMITIES: No cyanosis, or edema. NEUROLOGICAL: Awake, alert, and oriented x 3. Non-focal. Laboratory Laboratory Tests Test 07/05/16 07/06/16 15:50 03:55 Activated Partial 44.1 SEC Thromboplast Time White Blood Count 11.8 TH/MM3 Red Blood Count 4.12 MIL/MM3 Hemoglobin 12.7 GM/DL Hematocrit 38.4 % Mean Corpuscular Volume 93.2 FL Mean Corpuscular Hemoglobin 30.9 PG Mean Corpuscular Hemoglobin 33.1 % Concent Red Cell Distribution Width 13.2 % Platelet Count 216 TH/MM3 Mean Platelet Volume 8.0 FL Neutrophils (%) (Auto) 71.4 % Lymphocytes (%) (Auto) 20.2 % Monocytes (%) (Auto) 7.6 % Eosinophils (%) (Auto) 0.7 % Basophils (%) (Auto) 0.1 % Neutrophils # (Auto) 8.4 TH/MM3 Lymphocytes # (Auto) 2.4 TH/MM3 Monocytes # (Auto) 0.9 TH/MM3 Eosinophils # (Auto) 0.1 TH/MM3 Basophils # (Auto) 0.0 TH/MM3 CBC Comment DIFF FINAL Differential Comment Sodium Level 141 MEQ/L Potassium Level 3.9 MEQ/L Chloride Level 109 MEQ/L Carbon Dioxide Level 24.7 MEQ/L Anion Gap 7 MEQ/L Blood Urea Nitrogen 7 MG/DL Creatinine 0.54 MG/DL Estimat Glomerular Filtration 156 ML/MIN Rate Random Glucose 111 MG/DL Calcium Level 8.3 MG/DL Magnesium Level 1.8 MG/DL Triglycerides Level 102 MG/DL Cholesterol Level 151 MG/DL LDL Cholesterol 79 MG/DL HDL Cholesterol 51.3 MG/DL Cholesterol/HDL Ratio 2.94 RATIO Imaging Last Impressions Aorta CTA 07/05/16 0308 Signed Impressions: Service Date/Time: Tuesday, July 05, 2016 04:02 - CONCLUSION: 1. Minimal scattered atherosclerotic plaque is seen throughout the arterial system. 2. Multiple peripherally enhancing masses in the liver likely representing hemangiomas. August Saravia MD Chest X-Ray 07/05/16 0150 Signed Impressions: Service Date/Time: Tuesday, July 05, 2016 02:31 - CONCLUSION: No acute abnormality is seen. August Saravia MD Assessment and Plan Problem List: (1) NSTEMI (non-ST elevated myocardial infarction) Assessment and Plan: chest pain free, ambulating without difficulty DAPT ASA and Plavix Cont BB, statin, ACEi and Imdur Encourage ambulation ECHO today to assess LV function Stable to from CV standpoint to be d/c home today (2) Chest pain (3) ACS (acute coronary syndrome) (4) Hypokalemia Problem Qualifiers (1) Chest pain: Qualified Code: I20.0 - Unstable angina pectoris Rasheed Vazquez MD Jul 06, 2016 07:28
[2016-07-06] MEDS ORDERED: RAMIPRIL 2.5 MG CAP PO SCH (09:00)
[2016-07-06] MEDS ORDERED: CLOPIDOGREL 75 MG TAB PO SCH (09:00)
--- NOTE | 2016-07-06 09:10 | HHI.PR ---
Subjective Remarks eager for d/c no cp/sob Objective Vitals heart reg lung cta abd s/nt ext no edema Vital Signs Date Time Temp Pulse Resp B/P Pulse Ox O2 Delivery O2 Flow Rate FiO2 07/06/16 08:00 98.0 82 18 113/82 98 07/06/16 08:00 70 07/06/16 06:04 80 07/06/16 05:00 76 07/06/16 04:08 75 07/06/16 03:00 86 07/06/16 03:00 98.2 82 18 115/81 96 07/06/16 02:50 87 07/06/16 01:00 80 07/06/16 00:00 69 07/05/16 23:43 78 07/05/16 23:25 98.5 77 16 120/78 96 07/05/16 22:43 76 07/05/16 21:00 75 07/05/16 20:00 71 07/05/16 19:56 99 21 07/05/16 19:00 77 07/05/16 19:00 98.4 79 18 131/89 98 07/05/16 18:18 69 07/05/16 17:34 74 07/05/16 16:12 88 07/05/16 15:46 97.7 59 16 114/86 98 07/05/16 15:46 60 07/05/16 14:11 80 07/05/16 12:00 63 07/05/16 11:29 97.6 62 18 100/69 94 07/05/16 11:29 58 07/05/16 10:01 67 07/05/16 09:23 71 07/05/16 07/05/16 07/06/16 15:00 23:00 07:00 Intake Total 1790 ml 2050 ml Output Total 1150 ml 1150 ml Balance 640 ml 900 ml Intake Oral 600 ml 800 ml IV Total 1190 ml 1250 ml Output Urine Total 1150 ml 1150 ml # Bowel Movements 0 Result Diagram: 07/06/1635407/06/16354 A/P Problem List: (1) NSTEMI (non-ST elevated myocardial infarction) Status: Acute Plan: nstemi mild systolic LVD. EF 40% lad angel placed. rca occluded will f/u cardiology cont cardiac meds as listed d/c today. (2) Hypokalemia Status: Acute Plan: replace Moises Dorantes MD Jul 06, 2016 09:10
[2016-07-06] MEDS ORDERED: METO25TA3 PO (09:12)
[2016-07-06] MEDS ORDERED: LIPI10TA PO (09:12)
[2016-07-06] MEDS ORDERED: PLAV75TA29 PO (09:12)
[2016-07-06] MEDS ORDERED: RAMI2.5C PO (09:12)
[2016-07-06] MEDS ORDERED: Aspirin Chew PO (09:12)
[2016-07-06] MEDS ORDERED: ISOS30TA3 PO (09:12)
--- NOTE | 2016-07-06 09:12 | HHI.DCPOC ---
Discharge Care Plan Diagnosis: (1) NSTEMI (non-ST elevated myocardial infarction) Goals to Promote Your Health * To prevent worsening of your condition and complications * To maintain your health at the optimal level Directions to Meet Your Goals Take your medications as prescribed Follow your dietary instruction Follow activity as directed Keep your appointments as scheduled Take your immunizations and boosters as scheduled If your symptoms worsen call your PCP, if no PCP go to Urgent Care Center or Emergency Room Smoking is Dangerous to Your Health. Avoid second hand smoke Call the 24-hour hour crisis hotline for domestic abuse at Moises Dorantes MD Jul 06, 2016 09:12
[2016-07-06] MEDS: METOPROLOL TARTRATE 25 MG TAB PO SCH (09:40)
[2016-07-06] MEDS: ASPIRIN 81 MG CHEW TAB PO SCH (09:40)
[2016-07-06] MEDS: buPROPion HCL 100 MG SUSTAINED RELEASE TAB PO SCH (09:41)
[2016-07-06] MEDS: PANTOPRAZOLE SOD 20 MG DELAYED RELEASE TAB PO SCH (09:41)
[2016-07-06] MEDS: SODIUM CHLORIDE 0.9% FLUSH 10 ML FLUSH IV FLUSH SCH (09:41)
[2016-07-07] MEDS ORDERED: ISOSORBIDE MONONITRATE 30 MG TAB PO SCH (07:00)
--- NOTE | 2016-07-07 14:23 | EKG ---
Date Performed: 07/06/2016 Time Performed: 06:13:30 PTAGE: 56 years EKG: Sinus rhythm Anteroseptal infarct - age undetermined Lateral ST-T changes may be due to myocardial ischemia Since the prior tracing, the patient has developed fairly convincing changes of an anteroseptal infarct of indeterminant age. Clinical correlation will be important. Abnormal ECG PREVIOUS TRACING : 07/05/2016 05.15 DOCTOR: Beti Tee Interpretating Date/Time 07/07/2016 14:22:03
== END 2016-07-06 12:24 | disposition home or self-care (01) | DRG 247 ==
LOC: PHED 01:43 → PHEDA 05:42 → HCIN 07:35
PROVIDERS: ADMIT Hospitalist; ATTEND Hospitalist
PROC: 027034Z Dilation of Coronary Artery, One Artery with Drug-eluting Intraluminal Device, Percutaneous Approach (ICD-10-PCS; principal; 2016-07-05)
PROC: 4A023N7 Measurement of Cardiac Sampling and Pressure, Left Heart, Percutaneous Approach (ICD-10-PCS; 2016-07-05)
PROC: B211YZZ Fluoroscopy of Multiple Coronary Arteries using Other Contrast (ICD-10-PCS; 2016-07-05)
PROC: B215YZZ Fluoroscopy of Left Heart using Other Contrast (ICD-10-PCS; 2016-07-05)
DX: I21.4 Non-ST elevation (NSTEMI) myocardial infarction (principal); I25.82 Chronic total occlusion of coronary artery; I25.10 Atherosclerotic heart disease of native coronary artery without angina pectoris; Z87.891 Personal history of nicotine dependence; E87.6 Hypokalemia; K21.9 Gastro-esophageal reflux disease without esophagitis; F41.9 Anxiety disorder, unspecified; E78.5 Hyperlipidemia, unspecified; F32.9 Major depressive disorder, single episode, unspecified; I10 Essential (primary) hypertension
CPT/HCPCS: 71010; 71275; 74174; 80048; 80053; 80061; 82550; 82552; 83690; 83735; 84484; 85002; 85025; 85027; 85610; 85730; 92928; 93005; 93454; 96361; 96365; 96366; 96375; C1725; C1760; C1769; C1874; C1887; C1893; C9113; G0269; J1170; J1644; J2250; J2270; J2405; J2765; J3010; J3480; J7030; J7040; Q9967

== ENCOUNTER → 2017-06-17 | Day surgery (SDC) | payer OTHER ==
[~2017-06-17] MED LIST changes: +ALPR0.25 PO; +ATOR20TA15 PO; +Aspirin Chew PO; +BUPR100CR PO; +ISOS30TA3 PO; +LACTATED RINGER'S 1000 ML INJ 1,000 ML ONE; +LIPI10TA PO; +METO25TA3 PO; +PANT20TA2 PO; +PLAV75TA29 PO; +PROPOFOL 500 MG/50 ML BTL IV ONE; +RAMI2.5C PO; -Z.0.NO CURRENT MEDS
== END | disposition home or self-care (01) ==
LOC: ESDC 07:58
PROVIDERS: ATTEND Internal Medicine Gastroenterology
DX: Z12.11 Encounter for screening for malignant neoplasm of colon (principal); Z86.010 Personal history of colon polyps; D12.5 Benign neoplasm of sigmoid colon; K57.30 Diverticulosis of large intestine without perforation or abscess without bleeding; K64.8 Other hemorrhoids; R12 Heartburn; K44.9 Diaphragmatic hernia without obstruction or gangrene; K29.70 Gastritis, unspecified, without bleeding
CPT/HCPCS: 00813; 43239; 45380; 88305; 88312; J3010; J7120